=== PATIENT | female | born 1990 ===

== ENCOUNTER 2021-09-23 11:42 | Inpatient (IN) | payer SELFPAY ==
[2021-09-23] MEDS ORDERED: MINERAL OIL 30 ML ORAL LIQD PO PRN (15:58)
[2021-09-23] MEDS ORDERED: TERBUTALINE 1 MG/1 ML INJ SUB-Q PRN (15:58)
[2021-09-23] MEDS ORDERED: ONDANSETRON 4 MG/2 ML INJ IV PRN (15:58)
[2021-09-23] MEDS ORDERED: miSOPROStol 200 MCG TAB PR PRN (15:58)
[2021-09-23] MEDS ORDERED: NalbUPHINE 10 MG/1 ML INJ IV PRN (15:58)
[2021-09-23] MEDS ORDERED: LOPERAMIDE 2 MG CAP PO PRN (15:58)
[2021-09-23] MEDS ORDERED: METHYLERGONOVINE MALEATE 0.2 MG/ML VIAL IM PRN (15:58)
[2021-09-23] MEDS ORDERED: OXYTOCIN 10 UNIT/1 ML INJ IM PRN (15:58)
[2021-09-23] MEDS ORDERED: OXYTOCIN DRIP 30 UNITS/500 ML BAG IV SCH ×2 (16:00)
[2021-09-23] MEDS ORDERED: LIDOCAINE (2%) 20 MG/1 ML VIAL 20 ML MDV INFILTRATI SCH (16:30)
[2021-09-23 16:40] LABS: Hematocrit 38.8 % (30.3-42.9); Hemoglobin 12.6 gm/dl (10.1-14.3); Mean Corpuscular HGB Conc 33 % (30-34); Mean Corpuscular Volume 85 fl (79-97); Platelet Count 233 K/mm3 (140-440); Red Blood Count 4.57 M/mm3 (3.65-5.03); Red Cell Distribution Width 15.7 % (13.2-15.2)
[2021-09-23] MEDS: LACTATED RINGERS 1,000 ML IV SCH (16:47)
[2021-09-23] MEDS ORDERED: ACETAMINOPHEN 325 MG TAB PO PRN (17:00)
[2021-09-23] MEDS ORDERED: fentaNYL 100 MCG/2 ML INJ IV PRN (17:00)
[2021-09-23] MEDS ORDERED: CARBOPROST TROMETHAMINE 250 MCG/1 ML INJ IM PRN (17:00)
[2021-09-23] MEDS ORDERED: ePHEDrine SULFATE 50 MG/1 ML INJ IV PRN (17:00)
[2021-09-23] MEDS ORDERED: BUTORPHANOL 2 MG/1 ML INJ IV PRN (17:00)
--- NOTE | 2021-09-23 17:34 | History and Physical Report ---
History of Present Illness Date of examination: 09/23/21 Date of admission: 09/23/21 11:43 Chief complaint: Presents for a scheduled induction of labor due to GDM A1 History of present illness: Late entry to care at 15 1/7 Weeks at [facility], course complicated by GDM A1. Past History Past Medical History: no pertinent history Past Surgical History: no surgical history Family/Genetic History: hypertension (Mother) Social history: no significant social history - Obstetrical History Expected Date of Delivery: 09/22/21 Actual Gestation: 40 Week(s) 1 Day(s) : 3 Para: 2 Hx # Term Pregnancies: 2 Number of Living Children: 2 #1 Infant Gender: Male year: 2,[birth year] Birthweight: 2.722 kg Method of Delivery: Vaginal Gestational age at delivery: 40 #2 Gender: Female year: 2,[birth year] Birthweight: 2.722 kg Method of Delivery: Vaginal Gestational age at delivery: 40 Medications and Allergies Allergies Allergy/AdvReac Type Severity Reaction Status Date / Time No Known Allergies Allergy Unverified 09/23/21 14:36 Active Meds: Active Medications Acetaminophen (Acetaminophen 325 Mg Tab) 650 mg PO Q4H PRN PRN Reason: Pain, Mild (1-3) Butorphanol Tartrate (Butorphanol 2 Mg/1 Ml Inj) 2 mg IV Q2H PRN PRN Reason: Pain , Severe (7-10) Carboprost Tromethamine (Carboprost Tromethamine 250 Mcg/1 Ml Inj) 250 mcg IM ONCE PRN PRN Reason: Uterine Bleeding Ephedrine Sulfate (Ephedrine Sulfate 50 Mg/1 Ml Inj) 10 mg IV Q2M PRN PRN Reason: Hypotension Fentanyl (Fentanyl 100 Mcg/2 Ml Inj) 100 mcg IV Q2H PRN PRN Reason: Pain,Severe (7-10) LABOR PAIN Oxytocin/Sodium Chloride (Pitocin/Ns 30 Unit/500ml) 30 units in 500 mls @ 2 mls/hr IV TITR TAYLOR; Protocol Lactated Ringer's (Lactated Ringers) 1,000 mls @ 125 mls/hr IV DIRECT TAYLOR Last Admin: 09/23/21 16:47 Dose: 125 mls/hr Oxytocin/Sodium Chloride (Pitocin/Ns 30 Unit/500ml) 30 units in 500 mls @ 40 mls/hr IV TITR TAYLOR; Protocol Lidocaine (Lidocaine (2%) 20 Mg/1 Ml Vial 20 Ml Mdv) 20 ml INFILTRATI ONCE@1630 [facility] Stop: 09/24/21 16:29 Loperamide HCl (Loperamide 2 Mg Cap) 2 mg PO ONCE PRN PRN Reason: give with Hemabate Methylergonovine Maleate (Methylergonovine Maleate 0.2 Mg/Ml Vial) 0.2 mg IM ONCE PRN PRN Reason: Uterine Bleeding Mineral Oil (Mineral Oil 30 Ml Oral Liqd) 30 ml PO QHS PRN PRN Reason: Constipation Misoprostol (Misoprostol 200 Mcg Tab) 800 mcg CO ONCE PRN PRN Reason: Uterine Bleeding Nalbuphine HCl (Nalbuphine 10 Mg/1 Ml Inj) 10 mg IV Q2H PRN PRN Reason: Pain, Moderate (4-6) Ondansetron HCl (Ondansetron 4 Mg/2 Ml Inj) 4 mg IV Q8H PRN PRN Reason: Nausea And Vomiting Oxytocin (Oxytocin 10 Unit/1 Ml Inj) 10 unit IM ONCE PRN PRN Reason: Uterine Bleeding Terbutaline Sulfate (Terbutaline 1 Mg/1 Ml Inj) 0.25 mg SUB-Q ONCE PRN PRN Reason: Hyperstimulation/Hypertonicity Review of Systems All systems: negative - Vital Signs Vital signs: Vital Signs Pulse Pulse Ox 72 99 09/23/21 12:19 09/23/21 12:19 Temp Pulse Resp BP Pulse Ox 98.9 F 73 16 111/71 98 09/23/21 12:21 09/23/21 17:24 09/23/21 12:21 09/23/21 12:21 09/23/21 17:24 - Physical Exam Breasts: Positive: normal Cardiovascular: Regular rate Lungs: Positive: Clear to auscultation, Normal air movement Abdomen: Positive: normal appearance, soft, normal bowel sounds Genitourinary (Female): Positive: normal external genitalia, normal perenium Vagina: Positive: normal moisture Uterus: Positive: enlarged Anus/Rectum: Positive: normal perianal skin Extremities: Positive: normal - Obstetrical FHR: category 1 Uterine Contraction Monitor Mode: External Cervical Dilatation: 3 (vtx; intact) Cervical Effacement Percentage: 40 station: -3 Uterine Contraction Pattern: Irregular Uterine Tone Measurement Phase: Resting Uterine Contraction Intensity: Mild Results Result Diagrams: 09/23/21 14:15 Abnormal lab results 09/23/21 Range/Units 14:15 RDW 15.7 H (13.2-15.2) % All other labs normal. Assessment and Plan A: IUP @ 40 1/7 Weeks Category I Tracing GDM A1 GBS Negative P: Admit to L&D Per Routine Orders Accuchecks q 4 hours Pitocin Induction
--- NOTE | 2021-09-23 17:54 | Ultrasound Report ---
ULTRASOUND OBSTETRIC LIMITED INDICATION / CLINICAL INFORMATION: presentation. Clinical Gestational Age (GA) in weeks, days: 40, 1 TECHNIQUE: Transabdominal. COMPARISON: None available. FINDINGS: HEART RATE (beats per minute): 130 PRESENTATION: Cephalic. ADDITIONAL FINDINGS: None IMPRESSION: 1. Cephalic presentation with heart tones measuring 130 bpm Signer Name: aJy Bowman DO Signed: 09/23/2021 5:49 PM Workstation Name: [facility]
[2021-09-24] MEDS: LACTATED RINGERS 1,000 ML IV SCH ×2 (00:18→08:36)
--- NOTE | 2021-09-24 08:20 | Progress Note ---
Subjective - Subjective Date of service: 09/24/21 Interval history: FHT 130 baseline, moderate variability Likely: Q1-2 minutes Continue current management Expect pop Allan MD Objective - Vital Signs Vital Signs: Vital Signs - 12hr 09/23/21 09/23/21 09/23/21 20:22 20:27 20:32 Temperature Pulse Rate 63 63 67 Respiratory Rate Blood Pressure Blood Pressure [Left] O2 Sat by Pulse 98 98 98 Oximetry O2 Sat by Pulse Oximetry [ Bilateral] 09/23/21 09/23/21 09/23/21 20:37 20:42 20:47 Temperature Pulse Rate 65 66 65 Respiratory Rate Blood Pressure Blood Pressure [Left] O2 Sat by Pulse 97 97 96 Oximetry O2 Sat by Pulse Oximetry [ Bilateral] 09/23/21 09/23/21 09/23/21 20:50 20:52 20:57 Temperature Pulse Rate 71 65 65 Respiratory Rate Blood Pressure Blood Pressure [Left] O2 Sat by Pulse 93 96 97 Oximetry O2 Sat by Pulse Oximetry [ Bilateral] 09/23/21 09/23/21 09/23/21 21:02 21:07 21:12 Temperature Pulse Rate 65 73 68 Respiratory Rate Blood Pressure Blood Pressure [Left] O2 Sat by Pulse 97 97 97 Oximetry O2 Sat by Pulse Oximetry [ Bilateral] 09/23/21 09/23/21 09/23/21 21:17 21:22 21:27 Temperature Pulse Rate 69 68 74 Respiratory Rate Blood Pressure Blood Pressure [Left] O2 Sat by Pulse 98 97 97 Oximetry O2 Sat by Pulse Oximetry [ Bilateral] 09/23/21 09/23/21 09/23/21 21:36 21:41 21:46 Temperature Pulse Rate 64 66 69 Respiratory Rate Blood Pressure Blood Pressure [Left] O2 Sat by Pulse 98 97 97 Oximetry O2 Sat by Pulse Oximetry [ Bilateral] 09/23/21 09/23/21 09/23/21 21:51 21:56 22:01 Temperature Pulse Rate 61 67 75 Respiratory Rate Blood Pressure Blood Pressure [Left] O2 Sat by Pulse 97 96 97 Oximetry O2 Sat by Pulse Oximetry [ Bilateral] 09/23/21 09/23/21 09/23/21 22:06 22:11 22:16 Temperature Pulse Rate 68 64 73 Respiratory Rate Blood Pressure Blood Pressure [Left] O2 Sat by Pulse 97 97 97 Oximetry O2 Sat by Pulse Oximetry [ Bilateral] 09/23/21 09/23/21 09/23/21 22:21 22:26 22:31 Temperature Pulse Rate 66 64 64 Respiratory Rate Blood Pressure Blood Pressure [Left] O2 Sat by Pulse 96 96 98 Oximetry O2 Sat by Pulse Oximetry [ Bilateral] 09/23/21 09/23/21 09/23/21 22:36 22:41 22:46 Temperature Pulse Rate 65 62 67 Respiratory Rate Blood Pressure Blood Pressure [Left] O2 Sat by Pulse 98 97 96 Oximetry O2 Sat by Pulse Oximetry [ Bilateral] 09/23/21 09/23/21 09/23/21 22:51 22:56 23:01 Temperature Pulse Rate 64 65 70 Respiratory Rate Blood Pressure Blood Pressure [Left] O2 Sat by Pulse 96 97 98 Oximetry O2 Sat by Pulse Oximetry [ Bilateral] 09/23/21 09/23/21 09/23/21 23:06 23:11 23:16 Temperature Pulse Rate 65 62 69 Respiratory Rate Blood Pressure Blood Pressure [Left] O2 Sat by Pulse 97 97 99 Oximetry O2 Sat by Pulse Oximetry [ Bilateral] 09/23/21 09/23/21 09/23/21 23:21 23:26 23:31 Temperature Pulse Rate 71 76 64 Respiratory Rate Blood Pressure Blood Pressure [Left] O2 Sat by Pulse 98 98 96 Oximetry O2 Sat by Pulse Oximetry [ Bilateral] 09/23/21 09/23/21 09/23/21 23:36 23:41 23:42 Temperature Pulse Rate 76 64 61 Respiratory Rate Blood Pressure 110/69 Blood Pressure [Left] O2 Sat by Pulse 97 98 Oximetry O2 Sat by Pulse Oximetry [ Bilateral] 09/23/21 09/23/21 09/23/21 23:46 23:51 23:56 Temperature Pulse Rate 58 L 67 65 Respiratory Rate Blood Pressure Blood Pressure [Left] O2 Sat by Pulse 98 96 98 Oximetry O2 Sat by Pulse Oximetry [ Bilateral] 09/24/21 09/24/21 09/24/21 00:01 00:06 00:11 Temperature Pulse Rate 68 76 62 Respiratory Rate Blood Pressure Blood Pressure [Left] O2 Sat by Pulse 97 98 99 Oximetry O2 Sat by Pulse Oximetry [ Bilateral] 09/24/21 09/24/21 09/24/21 00:16 00:21 00:26 Temperature Pulse Rate 66 71 64 Respiratory Rate Blood Pressure Blood Pressure [Left] O2 Sat by Pulse 98 99 98 Oximetry O2 Sat by Pulse Oximetry [ Bilateral] 09/24/21 09/24/21 09/24/21 00:31 00:36 00:41 Temperature Pulse Rate 69 72 72 Respiratory Rate Blood Pressure Blood Pressure [Left] O2 Sat by Pulse 97 97 97 Oximetry O2 Sat by Pulse Oximetry [ Bilateral] 09/24/21 09/24/21 09/24/21 00:45 00:46 00:51 Temperature Pulse Rate 57 L 69 62 Respiratory Rate Blood Pressure 128/77 Blood Pressure [Left] O2 Sat by Pulse 98 98 Oximetry O2 Sat by Pulse Oximetry [ Bilateral] 09/24/21 09/24/21 09/24/21 00:56 01:01 01:06 Temperature Pulse Rate 66 71 70 Respiratory Rate Blood Pressure Blood Pressure [Left] O2 Sat by Pulse 98 97 97 Oximetry O2 Sat by Pulse Oximetry [ Bilateral] 09/24/21 09/24/21 09/24/21 01:15 01:20 01:25 Temperature Pulse Rate 67 64 58 L Respiratory Rate Blood Pressure Blood Pressure [Left] O2 Sat by Pulse 98 96 96 Oximetry O2 Sat by Pulse Oximetry [ Bilateral] 09/24/21 09/24/21 09/24/21 01:30 01:35 01:40 Temperature Pulse Rate 58 L 68 61 Respiratory Rate Blood Pressure Blood Pressure [Left] O2 Sat by Pulse 96 96 96 Oximetry O2 Sat by Pulse Oximetry [ Bilateral] 09/24/21 09/24/21 09/24/21 01:44 01:45 01:50 Temperature Pulse Rate 62 61 63 Respiratory Rate Blood Pressure 106/59 Blood Pressure [Left] O2 Sat by Pulse 93 99 97 Oximetry O2 Sat by Pulse Oximetry [ Bilateral] 09/24/21 09/24/21 09/24/21 01:55 02:00 02:05 Temperature 98.2 F Pulse Rate 63 69 71 Respiratory Rate Blood Pressure Blood Pressure [Left] O2 Sat by Pulse 98 98 97 Oximetry O2 Sat by Pulse Oximetry [ Bilateral] 09/24/21 09/24/21 09/24/21 02:10 02:15 02:20 Temperature Pulse Rate 57 L 64 57 L Respiratory Rate Blood Pressure Blood Pressure [Left] O2 Sat by Pulse 98 98 99 Oximetry O2 Sat by Pulse Oximetry [ Bilateral] 09/24/21 09/24/21 09/24/21 02:25 02:30 02:35 Temperature Pulse Rate 64 60 65 Respiratory Rate Blood Pressure Blood Pressure [Left] O2 Sat by Pulse 97 99 97 Oximetry O2 Sat by Pulse Oximetry [ Bilateral] 09/24/21 09/24/21 09/24/21 02:40 02:43 02:45 Temperature Pulse Rate 59 L 54 L 72 Respiratory Rate Blood Pressure 104/64 Blood Pressure [Left] O2 Sat by Pulse 96 97 Oximetry O2 Sat by Pulse Oximetry [ Bilateral] 09/24/21 09/24/21 09/24/21 02:50 02:55 03:00 Temperature Pulse Rate 57 L 59 L 59 L Respiratory Rate Blood Pressure Blood Pressure [Left] O2 Sat by Pulse 96 97 97 Oximetry O2 Sat by Pulse Oximetry [ Bilateral] 09/24/21 09/24/21 09/24/21 03:05 03:10 03:15 Temperature Pulse Rate 64 56 L 60 Respiratory Rate Blood Pressure Blood Pressure [Left] O2 Sat by Pulse 97 97 98 Oximetry O2 Sat by Pulse Oximetry [ Bilateral] 09/24/21 09/24/21 09/24/21 03:20 03:25 03:30 Temperature Pulse Rate 58 L 63 68 Respiratory Rate Blood Pressure Blood Pressure [Left] O2 Sat by Pulse 96 98 97 Oximetry O2 Sat by Pulse Oximetry [ Bilateral] 09/24/21 09/24/21 09/24/21 03:35 03:40 03:44 Temperature Pulse Rate 69 69 57 L Respiratory Rate Blood Pressure 107/64 Blood Pressure [Left] O2 Sat by Pulse 96 98 Oximetry O2 Sat by Pulse Oximetry [ Bilateral] 09/24/21 09/24/21 09/24/21 03:45 03:50 03:55 Temperature Pulse Rate 66 60 57 L Respiratory Rate Blood Pressure Blood Pressure [Left] O2 Sat by Pulse 96 97 96 Oximetry O2 Sat by Pulse Oximetry [ Bilateral] 09/24/21 09/24/21 09/24/21 04:00 04:05 04:10 Temperature Pulse Rate 58 L 57 L 67 Respiratory Rate Blood Pressure Blood Pressure [Left] O2 Sat by Pulse 99 98 97 Oximetry O2 Sat by Pulse Oximetry [ Bilateral] 09/24/21 09/24/21 09/24/21 04:15 04:20 04:25 Temperature Pulse Rate 64 73 61 Respiratory Rate Blood Pressure Blood Pressure [Left] O2 Sat by Pulse 97 98 98 Oximetry O2 Sat by Pulse Oximetry [ Bilateral] 09/24/21 09/24/21 09/24/21 04:30 04:35 04:40 Temperature Pulse Rate 66 66 62 Respiratory Rate Blood Pressure Blood Pressure [Left] O2 Sat by Pulse 99 98 99 Oximetry O2 Sat by Pulse Oximetry [ Bilateral] 09/24/21 09/24/21 09/24/21 04:43 04:45 04:50 Temperature Pulse Rate 56 L 62 65 Respiratory Rate Blood Pressure 124/73 Blood Pressure [Left] O2 Sat by Pulse 99 98 Oximetry O2 Sat by Pulse Oximetry [ Bilateral] 09/24/21 09/24/21 09/24/21 04:55 05:00 05:05 Temperature Pulse Rate 68 71 70 Respiratory Rate Blood Pressure Blood Pressure [Left] O2 Sat by Pulse 97 97 95 Oximetry O2 Sat by Pulse Oximetry [ Bilateral] 09/24/21 09/24/21 09/24/21 05:06 05:10 05:15 Temperature Pulse Rate 64 62 57 L Respiratory Rate Blood Pressure Blood Pressure [Left] O2 Sat by Pulse 94 96 95 Oximetry O2 Sat by Pulse Oximetry [ Bilateral] 09/24/21 09/24/21 09/24/21 05:16 05:20 05:22 Temperature Pulse Rate 61 59 L 69 Respiratory Rate Blood Pressure Blood Pressure [Left] O2 Sat by Pulse 94 95 94 Oximetry O2 Sat by Pulse Oximetry [ Bilateral] 09/24/21 09/24/21 09/24/21 05:25 05:30 05:35 Temperature Pulse Rate 64 57 L 62 Respiratory Rate Blood Pressure Blood Pressure [Left] O2 Sat by Pulse 96 95 95 Oximetry O2 Sat by Pulse Oximetry [ Bilateral] 09/24/21 09/24/21 09/24/21 05:39 05:40 05:44 Temperature Pulse Rate 65 58 L 67 Respiratory Rate Blood Pressure 112/70 Blood Pressure [Left] O2 Sat by Pulse 94 95 Oximetry O2 Sat by Pulse Oximetry [ Bilateral] 09/24/21 09/24/21 09/24/21 05:45 05:50 05:51 Temperature Pulse Rate 59 L 59 L 64 Respiratory Rate Blood Pressure Blood Pressure [Left] O2 Sat by Pulse 96 95 94 Oximetry O2 Sat by Pulse Oximetry [ Bilateral] 09/24/21 09/24/21 09/24/21 05:55 05:59 06:00 Temperature Pulse Rate 60 74 58 L Respiratory Rate Blood Pressure Blood Pressure [Left] O2 Sat by Pulse 95 93 97 Oximetry O2 Sat by Pulse Oximetry [ Bilateral] 09/24/21 09/24/21 09/24/21 06:05 06:10 06:19 Temperature Pulse Rate 63 66 69 Respiratory Rate Blood Pressure Blood Pressure [Left] O2 Sat by Pulse 96 98 98 Oximetry O2 Sat by Pulse Oximetry [ Bilateral] 09/24/21 09/24/21 09/24/21 06:24 06:29 06:34 Temperature Pulse Rate 71 69 74 Respiratory Rate Blood Pressure Blood Pressure [Left] O2 Sat by Pulse 98 97 97 Oximetry O2 Sat by Pulse Oximetry [ Bilateral] 09/24/21 09/24/21 09/24/21 06:39 06:43 06:44 Temperature Pulse Rate 66 60 65 Respiratory Rate Blood Pressure 120/73 Blood Pressure [Left] O2 Sat by Pulse 97 96 Oximetry O2 Sat by Pulse Oximetry [ Bilateral] 09/24/21 09/24/21 09/24/21 06:49 06:54 06:59 Temperature Pulse Rate 65 66 66 Respiratory Rate Blood Pressure Blood Pressure [Left] O2 Sat by Pulse 99 97 98 Oximetry O2 Sat by Pulse Oximetry [ Bilateral] 09/24/21 09/24/21 09/24/21 07:02 07:03 07:04 Temperature 98.8 F Pulse Rate 61 60 67 Respiratory 14 Rate Blood Pressure 124/77 Blood Pressure 124/77 [Left] O2 Sat by Pulse 97 98 Oximetry O2 Sat by Pulse 100 Oximetry [ Bilateral] 09/24/21 09/24/21 09/24/21 07:09 07:14 07:19 Temperature Pulse Rate 66 72 63 Respiratory Rate Blood Pressure Blood Pressure [Left] O2 Sat by Pulse 99 98 98 Oximetry O2 Sat by Pulse Oximetry [ Bilateral] 09/24/21 09/24/21 09/24/21 07:24 07:29 07:34 Temperature Pulse Rate 60 62 70 Respiratory Rate Blood Pressure Blood Pressure [Left] O2 Sat by Pulse 98 98 100 Oximetry O2 Sat by Pulse Oximetry [ Bilateral] 09/24/21 09/24/21 09/24/21 07:39 07:43 07:44 Temperature Pulse Rate 67 64 61 Respiratory Rate Blood Pressure 118/77 Blood Pressure [Left] O2 Sat by Pulse 98 99 Oximetry O2 Sat by Pulse Oximetry [ Bilateral] 09/24/21 09/24/21 09/24/21 07:49 07:54 07:59 Temperature Pulse Rate 62 68 58 L Respiratory Rate Blood Pressure Blood Pressure [Left] O2 Sat by Pulse 99 99 98 Oximetry O2 Sat by Pulse Oximetry [ Bilateral] 09/24/21 09/24/21 09/24/21 08:04 08:09 08:14 Temperature Pulse Rate 77 65 66 Respiratory Rate Blood Pressure Blood Pressure [Left] O2 Sat by Pulse 97 97 97 Oximetry O2 Sat by Pulse Oximetry [ Bilateral] - Labs Labs: Abnormal Labs 09/23/21 14:15 RDW 15.7 H Laboratory Results - last 24 hr 09/23/21 09/23/21 09/23/21 14:15 14:15 14:15 WBC 6.5 RBC 4.57 Hgb 12.6 Hct 38.8 MCV 85 MCH 28 MCHC 33 RDW 15.7 H Plt Count 233 POC Glucose Syphilis IgG/IgM Ab Nonreactive Blood Type O POSITIVE Antibody Screen Negative 09/23/21 09/23/21 09/23/21 14:33 18:37 22:11 WBC RBC Hgb Hct MCV MCH MCHC RDW Plt Count POC Glucose 78 88 81 Syphilis IgG/IgM Ab Blood Type Antibody Screen 09/24/21 09/24/21 01:55 06:12 WBC RBC Hgb Hct MCV MCH MCHC RDW Plt Count POC Glucose 88 83 Syphilis IgG/IgM Ab Blood Type Antibody Screen
[2021-09-24] MEDS ORDERED: LIDOCAINE PF 100 MG/5 ML (CARDIAC SYRINGE) IV ONE (11:10)
[2021-09-24] MEDS ORDERED: METHYLERGONOVINE MALEATE 0.2 MG/ML VIAL IM NR (11:34)
[2021-09-24] MEDS ORDERED: PROMETHAZINE 25 MG TAB PO PRN (12:26)
[2021-09-24] MEDS ORDERED: ONDANSETRON 4 MG/2 ML INJ IV PRN (12:26)
[2021-09-24] MEDS ORDERED: LANOLIN/ZINC/DIMETHICONE (LANSINOH) 7 GM TP PRN (12:26)
[2021-09-24] MEDS ORDERED: PROMETHAZINE 25 MG RECT SUPP PR PRN (12:26)
[2021-09-24] MEDS ORDERED: WITCH HAZEL/ GLYCERIN PAD TP PRN (12:26)
[2021-09-24] MEDS ORDERED: ACETAMINOPHEN 325 MG TAB PO PRN (12:26)
[2021-09-24] MEDS ORDERED: oxyCODONE /ACETAMINOPHEN 5-325MG TAB PO PRN (12:26)
[2021-09-24] MEDS ORDERED: KETOROLAC 30 MG/1 ML INJ IV PRN (12:26)
[2021-09-24] MEDS ORDERED: HYDROcodone/ACETAMINOPHEN 5-325 MG TAB PO PRN (12:26)
[2021-09-24] MEDS ORDERED: diphenhydrAMINE 25 MG CAP PO PRN (12:26)
[2021-09-24] MEDS ORDERED: MAGNESIUM HYDROXIDE (MOM) ORAL LIQD UDC PO PRN (12:26)
--- NOTE | 2021-09-24 12:31 | Procedure Note ---
OB Delivery Note - Delivery Date of Delivery: 09/24/21 Surgeon: LUCIANA WHELAN Estimated blood loss: 300cc - Vaginal Delivery position: OA Delivery induction: oxytocin Delivery augmentation: rupture of membranes, pitocin Delivery monitor: external FHT, external uterine Route of delivery: Delivery placenta: spontaneous Episiotomy: none Delivery laceration: none Anesthesia: none Delivery comments: Patient pushed to deliver a viablee male over an intact perineum with weight 3660gms and 8/9. Position MATTHEW, no nuchal cord. Spontaneous cry at delivery. Delivery of the anterior shoulder atraumatic, remainder of delivery uncomplicated. Cord clamped cut and baby handed to waiting BRAD team. Spontaneous delivery of an intact placenta with three-vessel cord. Inspection of the perineum cervix and vagina revealed no lacerations. Firm fundus after Methergine 0.2mg IMx2 doses and 1ooomcg cytotec for lower uterine segment atony, EBL 300ml. All sponge needle and instrument counts correct x2. Mom and baby stable to . No complications. Tiffanie Whelan MD
[2021-09-24] MEDS: IBUPROFEN 800 MG TAB PO SCH ×2 (12:41→23:59)
[2021-09-25 01:06] LABS: Hematocrit 36.7 % (30.3-42.9); Hemoglobin 11.9 gm/dl (10.1-14.3)
[2021-09-25] MEDS: IBUPROFEN 800 MG TAB PO SCH (05:15)
--- NOTE | 2021-09-25 10:15 | Progress Note ---
Assessment and Plan PPD#1 doing well 1. Routine care and discharge home later this pm Subjective Date of service: 09/25/21 Principal diagnosis: PPD#1 Interval history: pt has no complaints and wants to go home. pt is planning to breast feed at home. Vag bleed less than a period. Denies pelvic pain and pt voiding without difficulty. Objective - Constitutional Vitals: Vital Signs - 12hr 09/24/21 09/25/21 09/25/21 23:59 00:00 05:15 Temperature 98.3 F Pulse Rate 88 Respiratory 20 18 20 Rate Blood Pressure Blood Pressure 123/68 [Left] O2 Sat by Pulse 99 Oximetry O2 Sat by Pulse Oximetry [ Bilateral] 09/25/21 09/25/21 09/25/21 06:14 08:00 08:18 Temperature 97.6 F Pulse Rate 71 Respiratory 18 18 Rate Blood Pressure 99/63 Blood Pressure [Left] O2 Sat by Pulse 97 Oximetry O2 Sat by Pulse 98 Oximetry [ Bilateral] General appearance: Present: no acute distress - Neck Neck: normal ROM - Respiratory Respiratory effort: normal - Breasts Breasts: normal - Cardiovascular Rhythm: regular Extremities: No edema - Gastrointestinal General gastrointestinal: Present: soft, non-tender - Genitourinary Female genitourinary: other (Fundus firm 2cm below the umbilicus and non-tender) - Integumentary Integumentary: warm, dry - Neurologic Neurologic: moves all extremities - Psychiatric Psychiatric: cooperative - Labs CBC & Chem 7: 09/25/21 00:39 Medications & Allergies - Medications Allergies/Adverse Reactions: Allergies No Known Allergies Allergy (Verified 09/25/21 06:05) Home Medications: Home Medications Medication Instructions Recorded Confirmed Last Taken Type No Known Home Medications [No 09/24/21 09/24/21 Unknown History Reported Home Medications] Active Medications: Generic Name Dose Route Start Last Admin Trade Name Freq PRN Reason Stop Dose Admin Acetaminophen 650 mg 09/23/21 17:00 Acetaminophen 325 Mg Tab PO Q4H PRN Pain, Mild (1-3) Acetaminophen 650 mg 09/24/21 12:26 Acetaminophen 325 Mg Tab PO Q4H PRN Pain MILD(1-3)/Fever >100.5/BOLDEN Hydrocodone Bitart/Acetaminophen 2 each 09/24/21 12:26 Hydrocodone/Acetaminophen 5-325 Mg Tab PO Q6H PRN Pain, Moderate (4-6) Bisacodyl 10 mg 09/24/21 12:26 Bisacodyl 10 Mg Rect Supp UT BID PRN Constipation Butorphanol Tartrate 2 mg 09/23/21 17:00 Butorphanol 2 Mg/1 Ml Inj IV Q2H PRN Pain , Severe (7-10) Carboprost Tromethamine 250 mcg 09/23/21 17:00 Carboprost Tromethamine 250 Mcg/1 Ml Inj IM ONCE PRN Uterine Bleeding Diphenhydramine HCl 25 mg 09/24/21 12:26 Diphenhydramine 25 Mg Cap PO Q6H PRN Itching Ephedrine Sulfate 10 mg 09/23/21 17:00 Ephedrine Sulfate 50 Mg/1 Ml Inj IV Q2M PRN Hypotension Fentanyl 100 mcg 09/23/21 17:00 Fentanyl 100 Mcg/2 Ml Inj IV Q2H PRN Pain,Severe (7-10) LABOR PAIN Oxytocin/Sodium Chloride 30 units in 500 mls @ 2 mls/hr 09/23/21 16:00 09/24/21 11:53 Pitocin/Ns 30 Unit/500ml IV 0 mls/hr TITR TAYLOR 0 mls/hr Titration Protocol Lactated Ringer's 1,000 mls @ 125 mls/hr 09/23/21 16:00 09/24/21 12:07 Lactated Ringers IV 0 mls/hr DIRECT TAYLOR Infusion Oxytocin/Sodium Chloride 30 units in 500 mls @ 40 mls/hr 09/23/21 16:00 09/24/21 11:54 Pitocin/Ns 30 Unit/500ml IV 165 mls/hr TITR TAYLOR 165 mls/hr Administration Protocol Ibuprofen 800 mg 09/24/21 13:00 09/25/21 05:15 Ibuprofen 800 Mg Tab PO 800 mg Q6H TAYLOR Administration Ketorolac Tromethamine 30 mg 09/24/21 12:26 Ketorolac 30 Mg/1 Ml Inj IV 09/29/21 12:25 Q6H PRN Pain, Moderate (4-6) Loperamide HCl 2 mg 09/23/21 15:58 Loperamide 2 Mg Cap PO ONCE PRN give with Hemabate Magnesium Hydroxide 30 ml 09/24/21 12:26 Magnesium Hydroxide (Mom) Oral Liqd Udc PO HS PRN Constipation Mineral Oil 30 ml 09/23/21 15:58 Mineral Oil 30 Ml Oral Liqd PO QHS PRN Constipation Multi-Ingredient Ointment 1 applic 09/24/21 12:26 Lanolin/Zinc/Dimethicone (Lansinoh) 7 Gm TP PRN PRN Sore Nipples Nalbuphine HCl 10 mg 09/23/21 15:58 Nalbuphine 10 Mg/1 Ml Inj IV Q2H PRN Pain, Moderate (4-6) Ondansetron HCl 4 mg 09/23/21 15:58 Ondansetron 4 Mg/2 Ml Inj IV Q8H PRN Nausea And Vomiting Ondansetron HCl 4 mg 09/24/21 12:26 Ondansetron 4 Mg/2 Ml Inj IV Q8H PRN Nausea And Vomiting Oxycodone/Acetaminophen 1 tab 09/24/21 12:26 Oxycodone /Acetaminophen 5-325mg Tab PO Q6H PRN Pain, Moderate (4-6) Oxytocin 10 unit 09/23/21 15:58 Oxytocin 10 Unit/1 Ml Inj IM ONCE PRN Uterine Bleeding Promethazine HCl 25 mg 09/24/21 12:26 Promethazine 25 Mg Rect Supp UT Q6H PRN Nausea And Vomiting Promethazine HCl 25 mg 09/24/21 12:26 Promethazine 25 Mg Tab PO Q6H PRN Nausea And Vomiting Sodium Chloride 10 ml 09/24/21 13:00 Sodium Chloride 0.9% 10 Ml Flush Syringe IV 10/04/21 23:59 PRN NR Terbutaline Sulfate 0.25 mg 09/23/21 15:58 Terbutaline 1 Mg/1 Ml Inj SUB-Q ONCE PRN Hyperstimulation/Hypertonicity Witch Leeann/Glycerin 1 each 09/24/21 12:26 Witch Leeann/ Glycerin Pad TP PRN PRN Hemorrhoid/cleansing/soothing
--- NOTE | 2021-09-25 10:15 | Discharge Summary ---
Providers - Providers Date of Admission: 09/23/21 11:43 Attending physician: LUCIANA WHELAN MD Primary care physician: LUCIANA WHELAN MD Hospitalization Reason for admission: IUP at term Delivery: Episiotomy: none Laceration: none complications: none Discharge diagnosis: IUP at term delivered baby: male Hospital course: Term SAVD treated with uterine atony meds and course uneventful. Condition at discharge: Good Disposition: 01 HOME / SELF CARE / HOMELESS Plan - Provider Discharge Summary Activity: no sex for 6 weeks Diet: routine Instructions: routine Additional instructions: [] Smoking cessation referral if applicable(refer to patient education folder for contact #) [] Refer to [facility] Booklet Call your doctor immediately for: * Fever > 100.5 * Heavy vaginal bleeding ( >1 pad per hour) * Severe persistent headache * Shortness of breath * Reddened, hot, painful area to leg or breast * Drainage or odor from incision. * Keep incision clean and dry at all times and follow doctor's instructions regarding bathing/showering - Follow up plan Follow up: LUCIANA WHELAN MD [Primary Care Provider] - 6 Weeks
[2021-09-25 13:48] VITALS: BP 97/55
== END 2021-09-25 14:00 | disposition home or self-care (01) | DRG 807 ==
LOC: TRG 11:42 → LD 11:43 → TRG 15:58 → OB 09-24 13:18
PROVIDERS: ADMIT Obstetrics & Gynecology; ATTEND Obstetrics & Gynecology
PROC: 10E0XZZ Delivery of Products of Conception, External Approach (ICD-10-PCS; principal; 2021-09-24)
PROC: 3E033VJ Introduction of Other Hormone into Peripheral Vein, Percutaneous Approach (ICD-10-PCS; 2021-09-24)
DX: O24.429 Gestational diabetes mellitus in childbirth, unspecified control (principal); Z37.0 Single live birth; Z3A.40 40 weeks gestation of pregnancy; Z20.822 Contact with and (suspected) exposure to COVID-19
CPT/HCPCS: 36415; 76815; 82962; 85014; 85018; 85027; 86592; 86850; 86900; 86901; G0378; J2210; J2590; J7120; U0003